=== PATIENT | male | born 1950 | race Caucasian/White ===

== ENCOUNTER 2016-04-16 14:20 | Emergency (ER) | payer OTHER, MEDICARE ==
--- NOTE | 2016-04-16 14:37 | ER Document Report ---
Addendum entered and electronically signed by SURYA FRANCO NP 04/16/16 15:58 : Course - Re-evaluation Re-evalutation: 04/16/16 15:54 Chemistry called and his troponin is 0.255, pt was placed in room 37. Called Dr. García who is the physician in that pod area 4. Charge nurse said she will call to have nurse put him on the monitor. - Vital Signs Vital signs: Temp Pulse Resp BP Pulse Ox 97.8 F 72 20 141/57 H 99 04/16/16 14:26 04/16/16 14:26 04/16/16 14:26 04/16/16 14:26 04/16/16 14:26 - Laboratory Result Diagrams: 04/16/16 14:45 04/16/16 14:45 Laboratory results interpreted by me: 04/16/16 04/16/16 14:45 14:45 RBC 2.47 L Hgb 6.9 L Hct 21.9 L MCHC 31.6 L RDW 16.4 H Seg Neutrophils % 79.3 H Lymphocytes % 10.1 L Sodium 135.7 L Chloride 94 L BUN 34 H Creatinine 1.44 H Est GFR (Non-Af Amer) 49 L Glucose 170 H Alkaline Phosphatase 145 H Creatine Kinase 35 L Albumin 3.1 L Lipase 15.7 L Addendum entered and electronically signed by SURYA FRANCO NP 04/16/16 15:46 : Course - Re-evaluation Re-evalutation: 04/16/16 15:[address] malagon and upgraded the patient to level II. Unable to contact the charge nurse. - Vital Signs Vital signs: Temp Pulse Resp BP Pulse Ox 97.8 F 72 20 141/57 H 99 04/16/16 14:26 04/16/16 14:26 04/16/16 14:26 04/16/16 14:26 04/16/16 14:26 - Laboratory Result Diagrams: 04/16/16 14:45 04/16/16 14:45 Laboratory results interpreted by me: 04/16/16 04/16/16 14:45 14:45 RBC 2.47 L Hgb 6.9 L Hct 21.9 L MCHC 31.6 L RDW 16.4 H Seg Neutrophils % 79.3 H Lymphocytes % 10.1 L Sodium 135.7 L Chloride 94 L BUN 34 H Creatinine 1.44 H Est GFR (Non-Af Amer) 49 L Glucose 170 H Alkaline Phosphatase 145 H Creatine Kinase 35 L Albumin 3.1 L Lipase 15.7 L Addendum entered and electronically signed by SURYA FRANCO NP 04/16/16 15:35 : Course - Re-evaluation Re-evalutation: 04/16/16 15:33 hbg 6.9 called from lab. w units PRBC ordered. Pt has not been blood banded yet. In E waiting room with oxygen 3 lpm nc. - Vital Signs Vital signs: Temp Pulse Resp BP Pulse Ox 97.8 F 72 20 141/57 H 99 04/16/16 14:26 04/16/16 14:26 04/16/16 14:26 04/16/16 14:26 04/16/16 14:26 - Laboratory Result Diagrams: 04/16/16 14:45 04/16/16 14:45 Laboratory results interpreted by me: 04/16/16 14:45 RBC 2.47 L Hgb 6.9 L Hct 21.9 L MCHC 31.6 L RDW 16.4 H Seg Neutrophils % 79.3 H Lymphocytes % 10.1 L Original Note: ED Medical Screen (RME) - General Stated Complaint: CHEST PAIN Mode of Arrival: Wheelchair Information source: Patient Notes: Patient presents to the emergency department with chest pain that started this morning. Patient has extensive cardiac history. Patient is on home O2. 3 L, history COPD diabetes. Took 2 nitroglycerin with no relief of symptoms I have greeted and performed a rapid initial assessment of this patient. A comprehensive ED assessment and evaluation of the patient, analysis of test results and completion of the medical decision making process will be conducted by additional ED providers. TRAVEL OUTSIDE OF THE [place] IN LAST 30 DAYS: No - Related Data Allergies/Adverse Reactions: gabapentin Allergy (Verified 02/13/16 18:31) Past Medical History - Past Medical History Cardiac Medical History: Reports: Hx Congestive Heart Failure, Hx Coronary Artery Disease - CONGESTIVE HEART FAILURE, Hx Heart Attack - Patient reports having "multiple heart attacks", Hx Hypercholesterolemia, Hx Hypertension Pulmonary Medical History: Reports: Hx Bronchitis, Hx COPD, Hx Pneumonia, Hx Respiratory Failure - 3 L at rest, 5 L on exertion. Denies: Hx Asthma Neurological Medical History: Reports: Hx Cerebrovascular Accident - Patient reports having "multiple strokes". Denies: Hx Seizures Endocrine Medical History: Reports: Hx Diabetes Mellitus Type 2 Musculoskeltal Medical History: Reports Hx Arthritis Past Surgical History: Reports: Hx Cardiac Surgery - bypass x4, Hx Coronary Artery Bypass Graft, Hx Orthopedic Surgery, Other - 2 amputations - Immunizations Hx Diphtheria, Pertussis, Tetanus Vaccination: Yes Physical Exam - Vital signs Vitals: Temp Pulse Resp BP Pulse Ox 97.8 F 72 20 141/57 H 99 04/16/16 14:04/16/16 14:04/16/16 14:04/16/16 14:04/16/16 14:26 Course - Vital Signs Vital signs: Temp Pulse Resp BP Pulse Ox 97.8 F 72 20 141/57 H 99 04/16/16 14:26 04/16/16 14:04/16/16 14:04/16/16 14:04/16/16 14:26
[2016-04-16] MEDS ORDERED: ASPIRIN 81 MG TABLET, CHEWABLE PO ONE (14:38)
[2016-04-16 15:16] LABS: ABSOLUTE EOSINOPHILS # (AUTO) 0.1 10^3/uL (0.0-0.6); ABSOLUTE LYMPHOCYTES (AUTO) 0.5 10^3/uL (0.5-4.7); ABSOLUTE MONOCYTES (AUTO) 0.4 10^3/uL (0.1-1.4); ABSOLUTE NEUT (AUTO) 4.2 10^3/uL (1.7-8.2); BASOPHILS % (AUTO) 0.9 % (0-2); EOSINOPHILS % (AUTO) 1.4 % (0-6); HEMATOCRIT 21.9 % (37.9-51.0); HGB HCT DIFFERENCE -1.2; LYMPHOCYTES % (AUTO) 10.1 % (13-45); MEAN CORPUSCULAR HEMOGLOBIN 28.1 pg (27.0-33.4); MEAN CORPUSCULAR HGB CONC 31.6 g/dL (32.0-36.0); MEAN CORPUSCULAR VOLUME 89 fl (80-97); MONOCYTES % (AUTO) 8.3 % (3-13); RED BLOOD COUNT 2.47 10^6/uL (4.35-5.55); RED CELL DISTRIBUTION WIDTH 16.4 % (11.5-14.0); SEGMENTED NEUTROPHILS % (AUTO) 79.3 % (42-78); WHITE BLOOD COUNT 5.3 10^3/uL (4.0-10.5)
[2016-04-16 15:29] LABS: HEMOGLOBIN 6.9 g/dL (13.5-17.0)
[2016-04-16] MEDS ORDERED: NORMAL SALINE 250 ML IV PRN ×2 (15:30)
[2016-04-16 15:40] LABS: ALANINE AMINOTRANSFERASE 25 U/L (21-72); ALBUMIN 3.1 g/dL (3.5-5.0); ALKALINE PHOSPHATASE 145 U/L (38-126); ANION GAP 12 (5-19); ASPARTATE AMINO TRANSFERASE 19 U/L (17-59); BILIRUBIN,TOTAL 0.5 mg/dL (0.2-1.3); BLOOD UREA NITROGEN 34 mg/dL (7-20); CALCIUM 8.9 mg/dL (8.4-10.2); CARBON DIOXIDE 30 mmol/L (22-30); CHLORIDE 94 mmol/L (98-107); CREATINE KINASE 35 U/L (55-170); CREATININE RESULT 1.44 mg/dL (0.52-1.25); GLUCOSE 170 mg/dL (75-110); LIPASE 15.7 U/L (23-300); POTASSIUM 3.8 mmol/L (3.6-5.0); SODIUM 135.7 mmol/L (137-145); TOTAL PROTEIN 6.5 g/dL (6.3-8.2)
[2016-04-16 15:49] LABS: CREATINE KINASE MB 1.45 ng/mL (<4.55)
[2016-04-16 15:53] LABS: TROPONIN I 0.255 ng/mL
--- NOTE | 2016-04-16 16:30 | ER Document Report ---
ED General - General Chief Complaint: Chest Pain > 30 Stated Complaint: CHEST PAIN Time seen by provider: 16:10 Mode of Arrival: Wheelchair Information source: Patient Notes: 65-year-old male who states shortly after waking this morning it left-sided chest heaviness associated with shortness breath and diaphoresis. He reports the chest discomfort was nonradiating. He thinks it is similar what he had in the past with acute coronary syndrome and says he has a total of 7 or 8 cardiac stents. 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 Farmer in his last stent was put in he thinks about a year ago. He doesn't think he's had any stress testing or catheterization since then. He also reports a history of chronic anemia and says his primary care physician Dr. Burris found hemoglobin of 6.9 last month. Patient says he was told it was hemoglobin drop further he did not require transfusion. The patient reports he has been transfused in the past as a supportive measure and not necessarily in response to bleeding. He does report that an episode of GI bleeding 9 months ago and had some AVMs clipped but has no regular carpet installation specialist now. He reports he has generalized malaise yesterday but no specific fever, chills, nausea, vomiting, or chest pain. He denies any hematemesis, hematochezia, or melena. He has noted blood in his urine for the past 2 days. He denies abdominal pain, or back pain. He has chronic wound to his lower extremities and has been followed by the wound centering [place] in the past but is recently moved in [place] and is supposed to follow with the wound center here April 30. He reports current dressings on his legs without been changed since his last wound care visit last week. He denies any numbness weakness to extremities. He reports he took 2 sublingual [place] home without relief and says he has been compliant with his aspirin and Plavix Physical Exam: General: Alert, appears well. HEENT: Normocephalic. Atraumatic. PERRLA. Extraocular movements intact. Oropharynx clear. Mostly edentulous Neck: Supple. Non-tender. No JVD Respiratory: No respiratory distress. Clear and equal breath sounds bilaterally. Cardiovascular: Regular rate and rhythm. PMI not displaced Abdominal: Normal Inspection. Soft, non-tender. No distension. Normal Bowel Sounds. Rectal normal tone and brown stool no gross blood Back: Non-tender. No deformity or step off. Extremities: Moves all four extremities. Upper extremities: Normal inspection. Non-tender. Normal color. Normal ROM. Normal temperature. Lower extremities with 1+ edema dry dressings in place bilaterally of the one on the right is quite dirty as he appears to been ambulating on it. Amputated toes bilaterally Neurological: The clear mentation normal moves all 4 extremities to command Psychological: Normal affect. Normal Mood. Skin: Warm. Dry. Normal color. TRAVEL OUTSIDE OF THE [place] IN LAST 30 DAYS: No - Related Data Allergies/Adverse Reactions: gabapentin Allergy (Verified 02/13/16 18:31) Past Medical History - General Information source: Patient - Social History Smoking Status: Former Smoker Chew tobacco use (# tins/day): No Frequency of alcohol use: None Drug Abuse: None Family History: CAD, Hypertension Patient has suicidal ideation: No Patient has homicidal ideation: No - Past Medical History Cardiac Medical History: Reports: Hx Congestive Heart Failure, Hx Coronary Artery Disease - CONGESTIVE HEART FAILURE, Hx Heart Attack - Patient reports having "multiple heart attacks", Hx Hypercholesterolemia, Hx Hypertension Pulmonary Medical History: Reports: Hx Bronchitis, Hx COPD, Hx Pneumonia, Hx Respiratory Failure - 3 L at rest, 5 L on exertion. Denies: Hx Asthma Neurological Medical History: Reports: Hx Cerebrovascular Accident - Patient reports having "multiple strokes". Denies: Hx Seizures Endocrine Medical History: Reports: Hx Diabetes Mellitus Type 2 Renal/ Medical History: Denies: Hx Peritoneal Dialysis Musculoskeltal Medical History: Reports Hx Arthritis Past Surgical History: Reports: Hx Cardiac Surgery - bypass x4, Hx Coronary Artery Bypass Graft, Hx Orthopedic Surgery, Other - 2 amputations - Immunizations Hx Diphtheria, Pertussis, Tetanus Vaccination: Yes Review of Systems - Review of Systems Constitutional: Malaise, Weakness. denies: Chills, Fever EENT: denies: Ear pain, Throat pain Cardiovascular: Chest pain. denies: Dizziness, Lightheaded Respiratory: Short of breath. denies: Cough Gastrointestinal: denies: Abdominal pain, Nausea, Vomiting, Blood in vomit, Black stools, Rectal bleeding Genitourinary: Hematuria. denies: Burning, Dysuria Musculoskeletal: Leg swelling, Ankle swelling. denies: Back pain Hematologic/Lymphatic: denies: Swollen glands Neurological/Psychological: denies: Weakness, Numbness Physical Exam - Vital signs Vitals: Temp Pulse Resp BP Pulse Ox 97.8 F 72 20 141/57 H 99 04/16/16 14:26 04/16/16 14:26 04/16/16 14:26 04/16/16 14:04/16/16 14:26 Course - Re-evaluation Re-evalutation: 04/16/16 18:09 Time of dictation patient is pain-free. I suspect the patient is suffering a type II non-ST elevation DC. She has multiple cardiac stents already and has been compliant with aspirin and Plavix. His increasing effusion and possible pneumonia in the right lower lung and be treated with antibiotics and will obtain blood cultures. This may have produce sufficient stress on him that, combined with his chronic anemia, he is having cardiac ischemia producing elevated troponin. I ordered transfusion of 2 units of blood as well as antibiotics. I discussed case with Dr. Avalos nutritional services cook for hospitalist service at this facility he believes and I concur that the patient would best be cared for with access to his carpet installation specialist service in [place]. His primary care physician is also a [place] the patient is agreeable to transfer to that facility. I spoken with Dr. Fragoso of the hospitalist service there and he has accepted the patient in transfer. The patient reports his hemoglobin at Dr. Burris 's office was also 6.92 does not appear to be actively bleeding and he is heme negative. He also states that he has an outpatient DO NOT RESUSCITATE order that he left home but does wish DO NOT RESUSCITATE status to continue and I will order that. Total critical care time excluding billable procedures is 45 minutes - Vital Signs Vital signs: Temp Pulse Resp BP Pulse Ox 97.8 F 63 16 118/60 100 04/16/16 14:26 04/16/16 17:13 04/16/16 17:13 04/16/16 17:13 04/16/16 17:13 - Laboratory Result Diagrams: 04/16/16 14:45 04/16/16 14:45 Laboratory results interpreted by me: 04/16/16 04/16/16 04/16/16 14:45 14:45 15:40 RBC 2.47 L Hgb 6.9 L Hct 21.9 L MCHC 31.6 L RDW 16.4 H Seg Neutrophils % 79.3 H Lymphocytes % 10.1 L Sodium 135.7 L Chloride 94 L BUN 34 H Creatinine 1.44 H Est GFR (Non-Af Amer) 49 L Glucose 170 H Alkaline Phosphatase 145 H Creatine Kinase 35 L Albumin 3.1 L Lipase 15.7 L Crossmatch See Detail - Diagnostic Test Radiology reviewed: Image reviewed, Reports reviewed - EKG Interpretation by Me Additional EKG results interpreted by me: 04/16/16 16:30 EKG reviewed, so shows sinus rhythm at 71 right bundle-branch block left anterior fascicular block no acute changes no significant change compared to 06/2015 Discharge - Discharge Clinical Impression: Non-ST elevation (NSTEMI) myocardial infarction Pneumonia Qualifiers: Pneumonia type: due to unspecified organism Laterality: right Lung location: lower lobe of lung Qualified Code(s): J18.1 - Lobar pneumonia, unspecified organism Anemia Qualifiers: Anemia type: iron deficiency Iron deficiency anemia type: chronic blood loss Qualified Code(s): D50.0 - Iron deficiency anemia secondary to blood loss ( chronic) Condition: Serious Disposition: [facility] Admitting Provider: Hospitalist
[2016-04-16] MEDS ORDERED: NITROGLYCERIN/D5W 250 ML IV PRN (16:55)
[2016-04-16] MEDS ORDERED: CEFTRIAXONE 1 GM/D5W RTU 50 ML IV ONE (17:02)
--- NOTE | 2016-04-16 19:19 | EKG REPORT ---
SEVERITY:- ABNORMAL ECG - SINUS RHYTHM PROBABLE LEFT ATRIAL ABNORMALITY RBBB AND LAFB LATERAL INFARCT, OLD : Confirmed by: Patricia Rivas MD 16-Apr-2016 19:19:24
[2016-04-16 22:30] LABS: APPEARANCE,URINE CLEAR; BILIRUBIN,URINE NEGATIVE (NEGATIVE); GLUCOSE, URINE NEGATIVE (NEGATIVE); KETONES,URINE NEGATIVE (NEGATIVE); LEUKOCYTE ESTERASE,URINE NEGATIVE (NEGATIVE); NITRITE,URINE NEGATIVE (NEGATIVE); PROTEIN,URINE 30 mg/dL (NEGATIVE); URINE SPECIFIC GRAVITY 1.009; UROBILINOGEN,URINE NEGATIVE mg/dL (<2.0)
[2016-04-16] MEDS ORDERED: MORPHINE SULFATE 10 MG/ML INJ IV ONE (23:02)
[2016-04-16 23:45] VITALS: BP 132/66
--- NOTE | 2016-04-16 23:56 | ER Document Report ---
Doctor's Note Notes: 04/16/16 23:56 Patient resting comfortably, he reported having some arm, chest and back pain but was given morphine and now feels much better, vital signs are stable, EMS is in the emergency room to transport patient to [facility], patient remained stable for transport
== END 2016-04-16 23:56 | disposition short-term general hospital (02) ==
LOC: ER 14:20
DX: I21.4 Non-ST elevation (NSTEMI) myocardial infarction (principal); J18.1 Lobar pneumonia, unspecified organism; D50.0 Iron deficiency anemia secondary to blood loss (chronic); R61 Generalized hyperhidrosis; R06.02 Shortness of breath; Z66 Do not resuscitate; R53.1 Weakness; I50.9 Heart failure, unspecified; I25.10 Atherosclerotic heart disease of native coronary artery without angina pectoris; E78.00 Pure hypercholesterolemia, unspecified; I10 Essential (primary) hypertension; E11.9 Type 2 diabetes mellitus without complications; J44.9 Chronic obstructive pulmonary disease, unspecified; Z86.73 Personal history of transient ischemic attack (TIA), and cerebral infarction without residual deficits; Z87.891 Personal history of nicotine dependence; Z95.1 Presence of aortocoronary bypass graft; I25.2 Old myocardial infarction
CPT/HCPCS: 93005; 99285; 96375; 96365; 86900; 86901; 36415; 82553; 36430; 86850; 82550; 83690; 85025; 82272; 80053; 81001; 84484; 86920; 71010; 93010; P9016; J2270; J0696

== ENCOUNTER → 2016-05-05 | Outpatient (CLI) | payer MEDICARE ==
--- NOTE | 2016-05-05 16:15 | XCELERA REPORT ---
[address] [address] Lower Extremity Arterial Evaluation Name: JAYLENE REVELES Age: 66 yrs Gender: Male : 1950 Patient Status: Outpatient Patient Location: Study Date: 05/05/2016 09:57 AM Procedure: A color flow and duplex scan of the lower extremity arteries was performed bilaterally with velocity and waveform anaylsis. Ankle brachial indicies performed. Reason For Study: ULCER Ordering Physician: LINDSAY GUTIERREZ Performed By: Eddie Crowe Measurements and Calculations Right Left PATCHER BOWLING BALL PSV 175.1 167.9 cm/sec Prox PFA PSV -385.0 -148.3 cm/sec Prox SFA PSV 182.4 182.3 cm/sec Mid SFA PSV -215.3 -110.0 cm/sec Dist SFA PSV -197.4 -166.0 cm/sec Prox Pop A PSV 102.1 133.6 cm/sec Dist CHRIS PSV 113.9 18.3 cm/sec Dist COD CLERK PSV 90.1 cm/sec Carter Pedis PSV -90.8 -47.1 cm/sec Right Side Arterial Evaluation Normal velocity, waveform biphasic flow in the Common Femoral artery. Triphasic in the Deep Femoral. Monophasic from the Femoral to the Anterior Tibial artery. No flow in the Posterior Tibial artery. The ankle-brachial index is 0.74. 0-19 % stenosis is noted at the inflow, with sequential changes. Left Side Arterial Evaluation Normal velocity, waveform and triphasic flow are present, in the Common Femoral artery. Biphasic in the Deep Femoral artery. Monophasic from the Femoral to the to the infrageniculate vessels. With occlusion, monophasic reconstitution in the Anterior Tibial artery. The ankle-brachial index is 0.90. 50-99 % stenosis is noted at the Femoral artery. With sequential changes. Interpretation Summary Severe hemodynamically significant lesions in the bilateral lower extremities, on duplex imaging, at rest. Multilevel disease. : LINDSAY GUTIERREZ > Khoi Palmer
--- NOTE | 2016-05-05 16:31 | XCELERA REPORT ---
[address] [address] Lower Extremity Venous Evaluation Name: JAYLENE REVELES Age: 66 yrs Gender: Male : 1950 Patient Status: Outpatient Patient Location: Study Date: 05/05/2016 10:23 AM Procedure: A bilateral duplex scan of the lower extremity veins was performed. The evaluation included responses to compression and other maneuvers with patient in the supine and standing positions to assess venous insufficiency. Reason For Study: ULCER Ordering Physician: LINDSAY GUTIERREZ Performed By: Eddie Crowe Right Sided Venous Evaluation Deep venous system evaluatiion shows patent veins with no obstruction or significant reflux identified. Sapheno Femoral junction: no reflux. Femoral vein reflux: no reflux. Greater Saphenous vein, Proximal thigh: reflux: no reflux. Greater Saphenous vein, Distal thigh: reflux: no reflux. Greater Saphenous vein, Proximal below knee: reflux: 3.00 seconds. 3 mm diameter No significant Perforators identified. Marked soft tissue edema is seen. Left Sided Venous Evaluation Deep venous system evaluatiion shows patent veins with no obstruction or significant reflux identified. Sapheno Femoral junction: no reflux. Femoral vein reflux: no reflux. Greater Saphenous vein, Proximal thigh: reflux: no reflux. Greater Saphenous vein, Distal thigh: reflux: no reflux. Greater Saphenous vein, Proximal below knee: reflux: no reflux.. No significant Perforators identified. Marked soft tissue edema is seen. Interpretation Summary No duplex evidence of DVT or obstruction in the bilateral lower extremities. Reflux seen in just one spot. Marked tissue edema appreciated. : LINDSAY GUTIERREZ > Khoi Palmer
== END ==
LOC: SP 09:28
PROVIDERS: ATTEND Nurse Practitioner Family
DX: L97.512 Non-pressure chronic ulcer of other part of right foot with fat layer exposed (principal)
CPT/HCPCS: 93925; 93970

== ENCOUNTER → 2016-05-18 | Outpatient (CLI) | payer MEDICARE ==
[2016-05-18 15:08] LABS: ABSOLUTE LYMPHOCYTES (AUTO) 0.4 10^3/uL (0.5-4.7); ABSOLUTE MONOCYTES (AUTO) 0.5 10^3/uL (0.1-1.4); ABSOLUTE NEUT (AUTO) 2.9 10^3/uL (1.7-8.2); BASOPHILS % (AUTO) 0.6 % (0-2); EOSINOPHILS % (AUTO) 1.2 % (0-6); HEMATOCRIT 25.2 % (37.9-51.0); HEMOGLOBIN 8.5 g/dL (13.5-17.0); HGB HCT DIFFERENCE 0.3; LYMPHOCYTES % (AUTO) 11.3 % (13-45); MEAN CORPUSCULAR HEMOGLOBIN 29.6 pg (27.0-33.4); MEAN CORPUSCULAR HGB CONC 33.7 g/dL (32.0-36.0); MEAN CORPUSCULAR VOLUME 88 fl (80-97); MONOCYTES % (AUTO) 12.4 % (3-13); RED BLOOD COUNT 2.87 10^6/uL (4.35-5.55); RED CELL DISTRIBUTION WIDTH 16.6 % (11.5-14.0); SEGMENTED NEUTROPHILS % (AUTO) 74.5 % (42-78); WHITE BLOOD COUNT 3.8 10^3/uL (4.0-10.5)
[2016-05-18 15:54] LABS: ERYTHROCYTE SEDIMENTATION RATE 67 mm/hr (0-20)
== END ==
LOC: OD 14:03
PROVIDERS: ATTEND Nurse Practitioner Family
DX: E11.621 Type 2 diabetes mellitus with foot ulcer (principal)
CPT/HCPCS: 36415; 83036; 85025; 85652; 86140

== ENCOUNTER 2016-05-21 16:55 | Emergency (ER) | payer MEDICARE ==
[2016-05-21 17:28] LABS: ABSOLUTE EOSINOPHILS # (AUTO) 0.1 10^3/uL (0.0-0.6); ABSOLUTE LYMPHOCYTES (AUTO) 0.5 10^3/uL (0.5-4.7); ABSOLUTE MONOCYTES (AUTO) 0.7 10^3/uL (0.1-1.4); ABSOLUTE NEUT (AUTO) 4.5 10^3/uL (1.7-8.2); BASOPHILS % (AUTO) 0.5 % (0-2); EOSINOPHILS % (AUTO) 1.3 % (0-6); HEMATOCRIT 25.7 % (37.9-51.0); HEMOGLOBIN 8.6 g/dL (13.5-17.0); HGB HCT DIFFERENCE 0.1; LYMPHOCYTES % (AUTO) 8.8 % (13-45); MEAN CORPUSCULAR HEMOGLOBIN 29.5 pg (27.0-33.4); MEAN CORPUSCULAR HGB CONC 33.5 g/dL (32.0-36.0); MEAN CORPUSCULAR VOLUME 88 fl (80-97); MONOCYTES % (AUTO) 11.3 % (3-13); RED BLOOD COUNT 2.92 10^6/uL (4.35-5.55); RED CELL DISTRIBUTION WIDTH 16.6 % (11.5-14.0); SEGMENTED NEUTROPHILS % (AUTO) 78.1 % (42-78); WHITE BLOOD COUNT 5.8 10^3/uL (4.0-10.5)
[2016-05-21 17:42] LABS: ALANINE AMINOTRANSFERASE 33 U/L (21-72); ALBUMIN 3.7 g/dL (3.5-5.0); ALKALINE PHOSPHATASE 283 U/L (38-126); ANION GAP 12 (5-19); ASPARTATE AMINO TRANSFERASE 27 U/L (17-59); BILIRUBIN,TOTAL 0.8 mg/dL (0.2-1.3); BLOOD UREA NITROGEN 28 mg/dL (7-20); CALCIUM 8.9 mg/dL (8.4-10.2); CARBON DIOXIDE 27 mmol/L (22-30); CHLORIDE 97 mmol/L (98-107); CREATININE RESULT 1.11 mg/dL (0.52-1.25); GLUCOSE 121 mg/dL (75-110); POTASSIUM 3.1 mmol/L (3.6-5.0); SODIUM 136.4 mmol/L (137-145); TOTAL PROTEIN 6.9 g/dL (6.3-8.2)
[2016-05-21 18:27] LABS: APPEARANCE,URINE CLEAR; BILIRUBIN,URINE NEGATIVE (NEGATIVE); GLUCOSE, URINE NEGATIVE (NEGATIVE); KETONES,URINE NEGATIVE (NEGATIVE); LEUKOCYTE ESTERASE,URINE NEGATIVE (NEGATIVE); NITRITE,URINE NEGATIVE (NEGATIVE); PROTEIN,URINE 100 mg/dL (NEGATIVE); URINE SPECIFIC GRAVITY 1.009; UROBILINOGEN,URINE NEGATIVE mg/dL (<2.0)
--- NOTE | 2016-05-21 18:28 | ER Document Report ---
ED NIH Stroke Scale - NIH Stroke Scale When completed:: Before Alteplase *: 1. NIH scale should be completed with appropriate accompanying assessment tools. *: 2. The NIH should reflect what the patient is capable of doing and should not be coached by the clinician. 1a. Level of Consciousness: 0=Alert;keenly responsive -: 1=Drowsy -: 2=Obtunded -: 3=Coma/unresponsive or reflex to noxious stimuli. 1a. Responses: 0 1b. Orientation Questions: a. What month is it? -: b. How old are you? -: 0=Answers both questions correctly. -: 1=Answers one question correctly or patient is intubated or has orotracheal trauma. -: 2=Answers neither question correctly. 1b. Responses: 1 1c. Response to commands: a. Open and close eyes? -: b. Furnishings Conservator and release hand? -: Credit is given despite weakness. Demonstration of task is permitted. Substitute command if hands cannot be used. -: 0=Performs both tasks correctly -: 1=Performs one task correctly -: 2=Performs neither task correctly 1c. Responses: 0 2. Gaze: Establish eye contact and instruct patient to "Follow my finger" -: 0=Normal -: 1=Partial gaze palsy. Gaze is abnormal in one or both eyes, but where forced deviation or total gaze paresis is not present. -: 2=Forced deviation or total gaze paresis. 2. Responses: 0 3. Visual Sinclair: Sees fingers in all four quadrants. -: 0=No visual loss. -: 1=Partial hemianopsia. -: 2=Complete hemianopsia. -: 3=Bilateral hemianopsia (including Cortical blindness) 3. Responses: 0 4. Facial Movement: Instruct patient to: -: a. Show me your teeth -: b. Raise your eyebrows -: c. Close your eyes -: d. Smile -: 0=Normal symmetrical movement -: 1=Minor paralysis (flattened nasolabial fold, asymmetry on smiling). -: 2=Partial paralysis (total or near total paralysis of lower face). -: 3=Complete paralysis of upper and lower face 4. Responses: 0 5. Motor functions (left arm): Alternate sides and extend each arm with palms down (90 degrees if sitting or 45 degrees for supine). -: 0=No drift;limb holds for full 10 seconds. -: 1=Drift; limb holds but drifts down before full 10 seconds, but does not hit bed. -: 2=Some effort against gravity; limb cannot get to or maintain position. -: 3=No effort against gravity; limb falls. -: 4=No movement. -: UN=Amputation, joint fusion, explain in comments. 5. Responses (left arm): 2 5. Motor Functions (right arm): Alternate sides and extend each arm with palms down (90 degrees if sitting or 45 degrees for supine). -: 0=No drift;limb holds for full 10 seconds. -: 1=Drift; limb holds but drifts down before full 10 seconds, but does not hit bed. -: 2=Some effort against gravity; limb cannot get to or maintain position. -: 3=No effort against gravity; limb falls. -: 4=No movement. -: UN=Amputation, joint fusion, explain in comments. 5. Responses (right arm): 0 6. Motor Functions (left leg): With patient lying supine, alternate sides and extend each leg (30 degrees always while supine). -: 0=No drift, leg holds position for full 5 seconds -: 1=Drift; leg falls before full 5 seconds but does not hit bed. -: 2=Some effort against gravity, leg falls to bed but some effort against gravity. -: 3=No effort against gravity, leg falls to bed immediately. -: 4=No movement. -: UN=Amputation, joint fusion; explain in comments. 6. Responses (left leg): 1 6. Motor Functions (right leg): With patient lying supine, alternate sides and extend each leg (30 degrees always while supine). -: 0=No drift, leg holds position for full 5 seconds -: 1=Drift; leg falls before full 5 seconds but does not hit bed. -: 2=Some effort against gravity, leg falls to bed but some effort against gravity. -: 3=No effort against gravity, leg falls to bed immediately. -: 4=No movement. -: UN=Amputation, joint fusion; explain in comments. 6. Responses (right leg): 0 7. Limb Ataxia: With eyes open instruct patient to: -: a. "Touch your finger to your nose". -: b. "Touch your heel to your desir" -: 0=Absent -: 1=Present in one limb. -: 2=Present in two limbs. -: UN=Amputation or joint fusion; explain in comments. 7. Responses: 2 7. If ataxia present choose as appropriate: Left arm, Left leg 8. Sensory: Test sensation using pinprick or noxious stimuli. Test as many body parts as possible. -: 0=Normal;no sensory loss -: 1=Mile to moderate sensory loss (patient feels pin prick but is less sharp on affected side). -: 2=Severe or total sensory loss. 8. Responses: 1 9. Best Language: Instruct patient to: -: a. "Describe what you see in this picture." -: b. "Name the items in this picture." -: c. "Read these sentences." -: 0=No aphasia, normal -: 1=Mild to moderate aphasia. -: 2=Severe aphasia -: 3=Mute, global aphasia, no usable speech or auditory comprehension. 9. Responses: 0 10. Articulation, Dysarthia: Instruct patient to: -: "Read these words" or "Repeat these words" -: 0=Normal -: 1=Mild to moderate; patient may slur some words but can be understood without difficulty. -: 2=Severe; patients speech so slurred as to be unintelligible in the absence of dysphasia. -: UN=Intubated or other physical barrier, explain in comments. 10. Responses: 1 11. Extinction or inattention: 0=No abnormality -: 1= Visual, tactile, auditory, spatial, or personal inattention or extinction to bilateral simulation in one or the sensory modalities. -: 2=Profound deja-inattention or deja-inattention to more than one modality; does not recognize own hand. 11. Responses: 0 Total Score: 8
--- NOTE | 2016-05-21 18:30 | ER Document Report ---
ED Syncope and Near Syncope - General Mode of Arrival: Medic Information source: Patient TRAVEL OUTSIDE OF THE [place] IN LAST 30 DAYS: No - HPI Patient complains to provider of: Fainting Symptoms prior to episode: Other - see above Context: Other - see above Current symptoms: Other - see above <CHIKA ROD - Last Filed: 05/21/16 19:08> <BALDEVVINCENZO ANN - Last Filed: 05/21/16 22:56> - General Chief Complaint: Near Syncope Stated Complaint: NAUSEA Time Seen by Provider: 05/21/16 17:12 Notes: 66 year old male with history of a CVA (2007), CHF, and COPD presents to the ED via EMS complaining of a syncopal episode that occurred earlier this afternoon. Patient reports that he walked into his kitchen and then doesn't remember anything until waking up on the kitchen floor. Patient states that his head was "pounding", confused, and drooling. Patient thought he was having a stroke because his symptoms were similar to the one he had in 2008. Patient called his son at 1545 and the son called EMS. Patient is additionally complaining of mild diffuse abdominal pain, nausea, and left arm weakness and difficulty moving. Patient explains that he woke up feeling nauseous and unwell. Patient's son states that he received a normal text from the patient at 1520 before receiving the call at 1545 stating that he had fell. Patient had lasting left sided weakness secondary to the stroke in 2007, but states that his current symptoms are worse. Patient is currently on Plavix. (CHIKA ROD) - Related Data Allergies/Adverse Reactions: gabapentin Allergy (Verified 02/13/16 18:31) Past Medical History - General Information source: Patient - Social History Smoking Status: Former Smoker Frequency of alcohol use: Former Family History: CAD, Hypertension Patient has suicidal ideation: No Patient has homicidal ideation: No - Past Medical History Cardiac Medical History: Reports: Hx Congestive Heart Failure, Hx Coronary Artery Disease - CONGESTIVE HEART FAILURE, Hx Heart Attack - Patient reports having "multiple heart attacks", Hx Hypercholesterolemia, Hx Hypertension Pulmonary Medical History: Reports: Hx Bronchitis, Hx COPD, Hx Pneumonia, Hx Respiratory Failure - 3 L at rest, 5 L on exertion. Denies: Hx Asthma Neurological Medical History: Reports: Hx Cerebrovascular Accident - Patient reports having "multiple strokes" 2007. Denies: Hx Seizures Endocrine Medical History: Reports: Hx Diabetes Mellitus Type 2 Renal/ Medical History: Denies: Hx Peritoneal Dialysis Musculoskeltal Medical History: Reports Hx Arthritis Past Surgical History: Reports: Hx Cardiac Surgery - bypass x4, Hx Coronary Artery Bypass Graft, Hx Orthopedic Surgery, Other - 2 amputations - Immunizations Hx Diphtheria, Pertussis, Tetanus Vaccination: Yes <CHIKA ROD - Last Filed: 05/21/16 19:08> Review of Systems - Review of Systems Constitutional: No symptoms reported EENT: No symptoms reported Cardiovascular: No symptoms reported Respiratory: No symptoms reported Gastrointestinal: See HPI, Abdominal pain - mild and diffuse, Nausea Genitourinary: No symptoms reported Male Genitourinary: No symptoms reported Musculoskeletal: No symptoms reported Skin: No symptoms reported Hematologic/Lymphatic: No symptoms reported Neurological/Psychological: See HPI, Confusion, Weakness - left arm, Headaches -: Yes All other systems reviewed and negative <CHIKA ROD - Last Filed: 05/21/16 19:08> Physical Exam - Vital signs Interpretation: Normal - General General appearance: Alert In distress: None - HEENT Head: Normocephalic, Atraumatic Eyes: Normal Cornea: Normal Extraocular movements intact: Yes Pupils: PERRL Mouth/Lips: Normal - Respiratory Respiratory status: No respiratory distress Chest status: Nontender Breath sounds: Normal - Cardiovascular Rhythm: Regular - Abdominal Inspection: Normal Tenderness: Nontender - Back Back: Normal - Neurological Neuro grossly intact: No Cognition: Normal Orientation: Disoriented to time Aaron Coma Scale Eye Opening: Spontaneous Aaron Coma Scale Verbal: Oriented Aaron Coma Scale Motor: Obeys Commands [place] Coma Scale Total: 15 Motor strength normal: No: LUE, LLE Additional motor exam normals: 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 Gomes Time consulted: 18:40 <CHIKA ROD - Last Filed: 05/21/16 19:08> - Laboratory Result Diagrams: 05/21/16 17:06 05/21/16 17:06 - Diagnostic Test Radiology reviewed: Image reviewed, Reports reviewed <VINCENZO DE PAZ - Last Filed: 05/21/16 22:56> - Re-evaluation Re-evalutation: 05/21/16 18:57 Patient is a 66-year-old male who presents with left-sided weakness. Patient is discussed with neurology at [place]. Patient is a candidate for thrombolysis. This is been discussed at length with him and his family. Patient has presented within the for a half hour window of his symptoms will be treated accordingly. He'll be transferred to [place] for further management and evaluation. Family and patient understand and agree with this plan. Stable at time of transfer. (VINCENZO DE PAZ) - Vital Signs Vital signs: Temp Pulse Resp BP Pulse Ox 98.3 F 72 18 164/85 H 96 05/21/16 17:40 05/21/16 20:13 05/21/16 20:13 05/21/16 20:13 05/21/16 20:13 - Laboratory Laboratory results interpreted by me: 05/21/16 05/21/16 05/21/16 17:06 17:06 17:37 RBC 2.92 L Hgb 8.6 L Hct 25.7 L RDW 16.6 H Seg Neutrophils % 78.1 H Lymphocytes % 8.8 L Sodium 136.4 L Potassium 3.1 L Chloride 97 L BUN 28 H Glucose 121 H Alkaline Phosphatase 283 H Urine Protein 100 H - Consults Dr. Gomes Reason for consultation: 05/21/16 18:40 [facility] Transfer line was called. 05/21/2016 18:53 Dr. Gomes called back. The patient was discussed and agrees with the plan to give the patient thrombolytics and transfer him to [facility] ED. (CHIKA ROD) Critical Care Note - Critical Care Note Total time excluding time spent on procedures (mins): 90 - evaluation and management of stroke, consultation with neurology, discussion with patient and family, management of stroke, rotation of transfer <VINCENZO DE PAZ - Last Filed: 05/21/16 22:56> Discharge <CHIKA ROD - Last Filed: 05/21/16 19:08> <VINCENZO DE PAZ - Last Filed: 05/21/16 22:56> - Discharge Clinical Impression: CVA (cerebral vascular accident) Qualifiers: CVA mechanism: unspecified Qualified Code(s): I63.9 - Cerebral infarction, unspecified Condition: Stable Disposition: [facility] Scribe Attestation: 05/21/16 22:54 I personally performed the services described in the documentation, reviewed and edited the documentation which was dictated to the scribe in my presence, and it accurately records my words and actions. (VINCENZO DE PAZ) Scribe Documentation - Scribe Written by Rachelleibe:: Adalberto Che, 05/21/2016 1836 acting as scribe for :: Baldev <CHIKA ROD - Last Filed: 05/21/16 19:08> ED Alteplase Inc/Exc Criteria - Inclusion Criteria: 1: Patient presented to ED within 3 hours of acute ischemic stroke symptom onset ? -: Yes 2: Did baseline CT exclude intracranial hemorrhage and/or other risk factors? -: Yes 3: Is the age of the patient 18 years of age or greater? -: Yes : If any of the above questions are answered "NO" then stop, patient is not a candidate for Alteplase, : If all of the above questions are answered "YES" then continue with Exclusion Criteria. - Exclusion Criteria: 1: Is there evidence of intracranial hemorrhage on baseline CT? -: No 2: Is there suspicion of subarachnoid hemorrhage (even if CT negative)? -: No 3: Is there a history of serious head trauma, recent previous stroke or NC within 3 months? -: No 4: Does the patient have a clinical presentation consistent with NC or post-NC pericarditis? -: No 5: Is there history of intracranial hemorrhage? -: No 6: On repeated measurement is Systolic BP greater than 185mmHg or Diastolic BP greater that 110 mmHg and is aggressive treatment needed to reduce blood pressure to these limits (e.g. constant infusion of an anti-hypertensive)? -: No 7: Did the patient awake with stroke symptoms? -: No 8: Has the patient had a lumbar puncture or an arterial puncture at a non- compressile site within 7 days? -: No 9: With in the last 14 days did the patient have surgery or major trauma? -: No 10: Is the patient or less than 2 weeks? -: No 11: Was there any active bleeding or acute trauma? -: No 12: Does the patient have intracranial neoplasm, arteriovenous malformation or aneurysm? -: No 13: Does the patient have abnormal glucose (less than 50 or greater than 400mg/ dl)? Record glucose in Comment. -: No 14: Patient has rapidly improving symptoms at the time Alteplase is to be Administered. -: No 15: Does the patient have any risks for bleeding, including but not limited to: a.: Current use of Coumadin with PT greater than 15 seconds or INR greater than 1.7. b.: Current use of Pradaxa (Dabigatran). c.: Heparin administereed within the past 48 hours and PTT elevated. d.: Platelet count less than 100,000/mm. e.: Major surgery or serious trauma within 14 days. f.: Gastrointestinal or gynecological urinary bleeding within 14 days. g.: Myocardial Infarction (NC) within 3 months. -: No - remote GI bleed : If the answer to any of the above questions is "YES" then stop, the patient is not a candidate for Alteplase. : If the answer to all of the above questions is "NO" then the patient may be eligible for the Administration of Alteplase. : If the patient is noted to have seizure activity at onset of Stroke symptoms; Consult Neurologist for further evaluation. - The patient is: -: Included and is eligible to receive Alteplase. *Initiate bed placement at higher level of care* --: Yes Reviewd risks & benefits of thrombolytic therapy: I have reviewed the risks and benefits of thrombolytic therapy with the patient and/or his/her family. Yes -: Excluded and not eligible to receive Alteplase for the above exclusions. --: No -: Excluded and not eligible to receive Alteplase for other reasons (specify in comments): - Diagnosis of TIA: -: Patient presented with transient symptoms that are now resolved and no other neurologic findings are currently present. List symptoms in comments. -: No -: Patient is NOT a candidate for tPA. -: No -: ____(put name in comment) has been consulted for admission and continued evaluation of risk factor assessment. Comment: Pebbles Gomes <VINCENZO DE PAZ - Last Filed: 05/21/16 22:56>
[2016-05-21 18:42] LABS: PROTHROMBIN TIME 14.3 SEC (11.4-15.4)
[2016-05-21 18:43] LABS: PARTIAL THROMBOPLASTIN TIME 30.8 SEC (23.5-35.8)
[2016-05-21] MEDS ORDERED: ALTEPLASE INJ 100 MG VIAL IV ONE (18:59)
[2016-05-21] MEDS ORDERED: ALTEPLASE INJ 100 MG VIAL ONE (19:07)
[2016-05-21] MEDS ORDERED: ONDANSETRON HCL INJ/PF 4 MG/2 ML SDV IV ONE (19:47)
[2016-05-21] MEDS ORDERED: ONDANSETRON HCL INJ/PF 4 MG/2 ML SDV ONE (19:48)
[2016-05-21 20:15] VITALS: BP 164/85
== END 2016-05-21 20:13 | disposition short-term general hospital (02) ==
LOC: ER 16:55
DX: I63.9 Cerebral infarction, unspecified (principal); G81.94 Hemiplegia, unspecified affecting left nondominant side; R11.0 Nausea; R10.84 Generalized abdominal pain; R51 Headache; R41.0 Disorientation, unspecified; J44.9 Chronic obstructive pulmonary disease, unspecified; I25.10 Atherosclerotic heart disease of native coronary artery without angina pectoris; I25.2 Old myocardial infarction; I10 Essential (primary) hypertension; E11.9 Type 2 diabetes mellitus without complications; Z79.02 Long term (current) use of antithrombotics/antiplatelets; Z88.6 Allergy status to analgesic agent; Z87.891 Personal history of nicotine dependence; Z95.1 Presence of aortocoronary bypass graft
CPT/HCPCS: 99291; 99292; 96365; 36415; 85025; 85610; 85730; 80053; 81001; 71010; 70450; J2997